=== PATIENT | female | born 1955 | race Caucasian/White ===

== ENCOUNTER 2018-11-14 08:01 | Emergency (ER) | payer OTHER ==
[~2018-11-14] VITALS: Ht 152.4 cm; Wt 59.0 kg
[2018-11-14] MEDS ORDERED: SOD CHLORIDE 0.9% 500 ML IV STA (08:03)
[2018-11-14 08:07] VITALS: Ht 152.4 cm; Wt 59.0 kg
--- NOTE | 2018-11-14 09:23 | ERD ---
ER Documentation Chief Complaint Chief Complaint SYNCOPAL EPISODE MEAT [facility] @ HOME HPI 63-year-old female presents by paramedics after syncopal episode. Patient is Pashto speaking and I am unable to take a history initially. History available from her daughter, after she arrived in the emergency department and witnessed the event indicates that she was in her usual state of health until just prior to arrival which time she had a syncopal episode. Patient had no chest pain or palpitations prior to the episode. Patient reported no headache, focal weakness, numbness or seizure activity or other neurologic symptoms prior to the episode. She passed out and did not have any significant trauma. The paramedics were called. I have reviewed the supervisor coke handling pre-hospital care. Pre-hospital vital signs were reviewed. Pre-hospital diagnostic tests were reviewed. Upon arrival, patient is asymptomatic with no chest pain or headache, no shortness of breath or chest pain. ROS All systems reviewed and are negative except as per history of present illness. Allergies Allergies: Coded Allergies: No Known Allergy (Unverified , 11/14/18) PMhx/Soc History of Surgery: No Anesthesia Reaction: No Hx Neurological Disorder: No Hx Respiratory Disorders: No Hx Cardiac Disorders: Yes (HTN ) Hx Psychiatric Problems: No Hx Miscellaneous Medical Probl: Yes (DM ) Hx Alcohol Use: No Hx Substance Use: No Hx Tobacco Use: No Smoking Status: Never smoker FmHx Supportive family at bedside otherwise noncontributory Physical Exam Vitals Vital Signs Date Temp Pulse Resp B/P (MAP) Pulse Ox O2 O2 Flow FiO2 Time Delivery Rate 11/14/18 97.6 71 16 152/79 100 08:07 (103) Physical Exam GENERAL: Frail, elderly, pale female in no distress HEENT: Pupils equal, round, and reactive to light. EOMI. There is no scleral icterus. NECK: C-spine is soft and supple, there is no meningismus. There is no cervical lymphadenopathy. LUNGS: Clear to auscultation bilaterally. There are no rales, wheezes or rhonchi. HEART: Regular rate and rhythm, no murmurs, clicks, rubs or gallops. ABDOMEN: Soft, non-tender, non-distended. There are bowel sounds in all four quadrants. No rebound or guarding. EXTREMITIES: There is no peripheral cyanosis or edema. No focal swelling or erythema. NEURO: The patient moves all four extremities with 5/5 strength. Cranial nerves II - XII are intact. Normal gait. Alert and oriented SKIN: There is no apparent rash or petechiae. HEME/LYMPHATIC: There is no evidence of excessive bruising or lymphedema. PSYCHIATRIC: The patient does not appear anxious or depressed. Result Diagram: 11/14/1814 11/14/1814 Results 24 hrs Laboratory Tests Test 11/14/18 08:14 White Blood Count 8.8 10^3/ul Red Blood Count 3.54 10^6/ul Hemoglobin 10.7 g/dl Hematocrit 33.4 % Mean Corpuscular Volume 94.4 fl Mean Corpuscular Hemoglobin 30.2 pg Mean Corpuscular Hemoglobin Concent 32.0 g/dl Red Cell Distribution Width 13.3 % Platelet Count 243 10^3/UL Mean Platelet Volume 11.1 fl Immature Granulocytes % 0.800 % Neutrophils % 61.0 % Lymphocytes % 27.2 % Monocytes % 7.8 % Eosinophils % 2.9 % Basophils % 0.3 % Nucleated Red Blood Cells % 0.0 /100WBC Immature Granulocytes # 0.070 10^3/ul Neutrophils # 5.4 10^3/ul Lymphocytes # 2.4 10^3/ul Monocytes # 0.7 10^3/ul Eosinophils # 0.3 10^3/ul Basophils # 0.0 10^3/ul Nucleated Red Blood Cells # 0.0 10^3/ul Sodium Level 137 mmol/L Potassium Level 4.9 mmol/L Chloride Level 101 mmol/L Carbon Dioxide Level 25 mmol/L Anion Gap 11 Blood Urea Nitrogen 32 mg/dl Creatinine 1.22 mg/dl Est Glomerular Filtrat Rate mL/min 45 mL/min Glucose Level 149 mg/dl Calcium Level 9.6 mg/dl Troponin I < 0.012 ng/ml Current Medications Medications Dose Sig/Jeni Start Time Status Last (Trade) Ordered Route PRN Stop Time Admin Dose Reason Admin Sodium 500 ml @ Q1H STAT 11/14/18 DC 11/14/18 Chloride 500 mls/hr IV 08:03 08:18 11/14/18 09:02 Procedures/MDM Patient was taken to a room, seen and evaluated. Comfort measures were initiated. Diagnostic tests were ordered and reviewed. 3 LEAD RHYTHM STRIP: [Normal sinus rhythm without ectopy] Quality Assurance Auditor EK lead EKG reviewed by myself: [Normal Sinus Rhythm] [Normal [place] and intervals] [No ST elevation, depression, or T wave inversion] Impression: [Normal EKG] EKG upon arrival reviewed by myself: Twelve-lead EKG interpreted by myself: Rate/rhythm: [Normal sinus rhythm no ectopy] [place]/intervals: [Normal] Ischemia: [No ST elevation, ST depression, T wave inversion] Impression: [Nonischemic EKG] RADIOLOGY: [reviewed with the radiologist] CONSULTATION: [hospitalist] was notified for admission REEVALUATION: 919: Diagnostic tests have been reviewed. Patient remained neurologically normal and hemodynamic is stable. Case was discussed with the family decision was made for admission to the hospital. MEDICAL DECISION MAKIN-year-old female presents the emergency department after a syncopal episode. At this time, her EKG and lack of arrhythmia is reassuring, but given her age she will be admitted for observation. She also happens to have an anemia but no evidence of significant blood loss by history. According to her daughter, she has a questionable history of a gastric malignancy which is being worked up. Overall, given the patient's significant frail appearance, she will be admitted for observation for further diagnostic concerns of what is causing the syncope. Departure Diagnosis: Primary Impression: Syncope Condition: Serious ABBE,JASON Nov 14, 2018 09:23
[2018-11-14] MEDS ORDERED: SITA1TAB5 PO (09:39)
[2018-11-14] MEDS ORDERED: CHOL100062 PO (09:39)
[2018-11-14] MEDS ORDERED: METO-319 PO (09:40)
[2018-11-14] MEDS ORDERED: OMEP20CA16 PO (09:40)
[2018-11-14] MEDS ORDERED: MONT10TA24 PO (09:41)
[2018-11-14] MEDS ORDERED: ONDA4TAB13 PO (09:41)
[2018-11-14] MEDS ORDERED: RANO10002 PO (09:41)
[2018-11-14] MEDS ORDERED: DULO30CA47 PO (09:42)
[2018-11-14] MEDS ORDERED: ROSU20TA PO (09:42)
[2018-11-14] MEDS ORDERED: LOSA1TAB22 PO (09:42)
[2018-11-14] MEDS ORDERED: ASPI81TA52 PO (09:42)
[2018-11-14] MEDS ORDERED: INSU100I33 SC (09:43)
[2018-11-14] MEDS ORDERED: ONDANSETRON 4 MG INJ IV STA (10:23)
[2018-11-14 10:50] VITALS: BP 137/78; PULSE 76; RESP 16
== END 2018-11-14 10:50 | disposition home or self-care (01) ==
LOC: E/R 08:01
DX: R55 Syncope and collapse (principal); I10 Essential (primary) hypertension; E11.9 Type 2 diabetes mellitus without complications
CPT/HCPCS: 36415; 71045; 80048; 84484; 85025; 93005; 96361; 96374; J2405; J7040; Z7502